=== PATIENT | male | born 1945 | race Caucasian/White ===

== ENCOUNTER → 2019-11-28 | Outpatient (CLI) | payer MEDICARE ==
--- NOTE | 2019-11-28 12:03 | US ---
EXAMINATION TYPE: US venous doppler duplex LE RT DATE OF EXAM: 11/28/2019 11:48 AM COMPARISON: NONE CLINICAL HISTORY: I80.9 Phlebitis and thrombophlebitis of. POST OP SURGERY PAIN AND EDEMA ON BLOOD TH INNERS. SIDE PERFORMED: Right TECHNIQUE: The lower extremity deep venous system is examined utilizing real time linear array sonog gloria with graded compression, doppler sonography and color-flow sonography. VESSELS IMAGED: External Iliac Vein (EIV) Common Femoral Vein Deep Femoral Vein Greater Saphenous Vein * Femoral Vein Popliteal Vein Small Saphenous Vein * Proximal Calf Veins (* superficial vessels) Right Leg: Negative for DVT IMPRESSION: No evidence for DVT
== END | disposition home or self-care (01) ==
LOC: RADUSWWP 11:33
PROVIDERS: ATTEND Orthopaedic Surgery
DX: M25.561 Pain in right knee (principal); E78.5 Hyperlipidemia, unspecified; I10 Essential (primary) hypertension; M23.91 Unspecified internal derangement of right knee; I80.9 Phlebitis and thrombophlebitis of unspecified site